=== PATIENT | female | born 1970 | race Two or more races ===

== ENCOUNTER 2020-01-06 14:57 | Outpatient (CLI) | payer OTHER | END 2020-01-06 15:05 | disposition home or self-care (01) | LOC: RAD 14:57 | DX: M54.2 Cervicalgia (principal) ==

== ENCOUNTER 2021-12-31 02:40 | Emergency (ER) | payer OTHER ==
[~2021-12-31] VITALS: Ht 152.4 cm; Wt 64.0 kg
[2021-12-31] MEDS ORDERED: LOSARTAN-HCTZ1 EACH PO (03:00)
[2021-12-31] MEDS ORDERED: NORFLEX100MG PO (06:31)
[2021-12-31] MEDS ORDERED: ACETAMINOPHEN650 M2 PO (06:31)
[2021-12-31] MEDS ORDERED: KETO10TA2 PO (06:31)
== END 2021-12-31 07:03 | disposition home or self-care (01) ==
LOC: ER 02:40
DX: M25.562 Pain in left knee (principal); M17.12 Unilateral primary osteoarthritis, left knee; M25.462 Effusion, left knee

== ENCOUNTER 2023-02-14 13:12 | Outpatient (CLI) | payer OTHER ==
[~2023-02-14 13:12] MED LIST: ACETAMINOPHEN650 M2 PO; KETO10TA2 PO; LOSARTAN-HCTZ1 EACH PO; NORFLEX100MG PO
== END 2023-02-14 13:15 | disposition home or self-care (01) ==
LOC: NUCLEAR 13:12
PROVIDERS: ATTEND Orthopaedic Surgery
DX: M81.0 Age-related osteoporosis without current pathological fracture (principal)

== ENCOUNTER 2023-02-14 14:42 | Outpatient (CLI) | payer OTHER | END 2023-02-14 14:49 | disposition home or self-care (01) | LOC: RAD 14:42 | PROVIDERS: ATTEND Orthopaedic Surgery | DX: M25.562 Pain in left knee (principal); M23.92 Unspecified internal derangement of left knee; M25.561 Pain in right knee | CPT/HCPCS: 73721 ==

== ENCOUNTER 2023-10-16 10:29 | Outpatient (CLI) | payer OTHER ==
[2023-10-16 11:40] LABS: HEMATOCRIT 39.8 % (36.0-45.00); HEMOGLOBIN 13.3 g/dL (12.0-15.00); MEAN CORPUSCULAR HEMOGLOBIN 28.5 pg (27.00-32.0); MEAN CORPUSCULAR HGB CONC 33.5 g/dl (32.0-36.0); PLATELET COUNT 275 K/uL (150-450); RED BLOOD COUNT 4.68 M/uL (4.00-6.00)
[2023-10-16 11:48] LABS: URINE APPEARANCE Clear; URINE BACTERIA 2247.8 uL (0.0-1933); URINE BILIRRUBIN Negative (NEGATIVE); URINE BLOOD Negative; URINE COLOR Yellow; URINE EPITHELIAL CELLS 72.9 uL (0.0-38.8); URINE GLUCOSE Negative (NEGATIVE); URINE LEUKOCYTE Negative; URINE NITRATE Negative; URINE PROTEIN Negative (NEGATIVE); URINE RBC 24.4 uL (0.0-20.8); URINE UROBILINOGEN 0.2 E.U./dl; URINE WBC 33.2 uL (0.0-23.2)
[2023-10-16 12:07] LABS: INR 0.96; PROTHROMBIN TIME 10.1 SECONDS (9.0-11.5)
[2023-10-16 12:08] LABS: BILIRUBIN TOTAL 0.51 mg/dL (0.3-1.2); CALCIUM 8.9 mg/dL (8.5-10.1); CREATININE SERUM 0.71 mg/dL (0.55-1.02); GFR 86.44; GLOBULINA 3.6 G/DL (2.4-3.5); PARTIAL THROMBOPLASTIN TIME 29.8 SECONDS (22.0-34.0); POTASSIUM 3.87 mEq/L (3.5-5.1); TOTAL PROTEIN 7.6 gm/dL (6.4-8.2)
[2023-10-16 12:19] LABS: COL EPI 82 SECONDS (82-175)
[2023-10-16] MEDS ORDERED: COZAAR50 MG PO (12:50)
== END 2023-10-16 11:53 | disposition home or self-care (01) ==
LOC: LAB 10:29
PROVIDERS: ATTEND Orthopaedic Surgery
DX: D64.9 Anemia, unspecified (principal); E88.89 Other specified metabolic disorders; D68.8 Other specified coagulation defects; N39.0 Urinary tract infection, site not specified; Z22.322 Carrier or suspected carrier of Methicillin resistant Staphylococcus aureus; E11.9 Type 2 diabetes mellitus without complications; I10 Essential (primary) hypertension; Z76.89 Persons encountering health services in other specified circumstances

== ENCOUNTER 2023-10-21 08:02 | Inpatient (IN) | payer OTHER ==
[~2023-10-21] VITALS: Ht 152.4 cm; Wt 70.3 kg
[~2023-10-21 08:02] MED LIST changes: +COZAAR50 MG PO
[2023-10-22] MEDS ORDERED: EPINEPHRINE HCL/PF 1 MG/ML AMPUL ONE (10:07)
[2023-10-22] MEDS ORDERED: POLYMYXIN B SULFATE 500,000 U VIAL ONE (10:07)
[2023-10-22] MEDS ORDERED: CEFAZOLIN SODIUM 1,000 MG VIAL ONE ×2 (10:07→16:57)
[2023-10-22] MEDS ORDERED: VANCOMYCIN HCL 1,000 MG VIAL ONE (10:07)
[2023-10-22] MEDS ORDERED: TRANEXAMIC ACID 100MG/1ML (1000MG) AMPUL IV ONE (10:07)
[2023-10-22] MEDS ORDERED: KETOROLAC TROMETHAMINE 60 MG VIAL IM ONE (10:13)
[2023-10-22] MEDS ORDERED: BUPIVACAINE HCL/PF 0.5% 30ML ML ONE ×2 (10:13→14:30)
[2023-10-22] MEDS ORDERED: LIDOCAINE HCL/EPINEPHRINE 10MG/ML 1% 50ML IJ ONE (10:14)
[2023-10-22] MEDS ORDERED: MORPHINE SULFATE 4 MG/ML CARTRIDGE IV SCH (12:00)
[2023-10-22] MEDS ORDERED: EPINEPHRINE HCL/PF 1 MG/ML AMPUL IR SCH (12:00)
[2023-10-22] MEDS ORDERED: BUPIVACAINE HCL/PF 0.5% 30ML ML IJ SCH (12:00)
[2023-10-22] MEDS ORDERED: CEFAZOLIN SODIUM 1,000 MG VIAL IV SCH ×2 (12:00→17:00)
[2023-10-22] MEDS ORDERED: ISOPROPYL ALCOHOL 30 ML OUNCE TOP SCH (12:00)
[2023-10-22] MEDS ORDERED: VANCOMYCIN HCL 1,000 MG VIAL IR SCH (12:00)
[2023-10-22] MEDS ORDERED: KETOROLAC TROMETHAMINE 60 MG VIAL IM SCH (12:00)
[2023-10-22] MEDS ORDERED: TRANEXAMIC ACID 100MG/1ML (1000MG) AMPUL IV SCH ×2 (12:00)
[2023-10-22] MEDS ORDERED: POLYMYXIN B SULFATE 500,000 U VIAL IR SCH (12:00)
[2023-10-22] MEDS ORDERED: LIDOCAINE HCL/EPINEPHRINE 30 ML ML IJ SCH (12:00)
[2023-10-22] MEDS ORDERED: ACETAMINOPHEN 500 MG GEL..CAP PO PRN (15:30)
[2023-10-22] MEDS ORDERED: ENALAPRILAT DIHYDRATE 1.25 MG/ML VIAL IV PRN (15:30)
[2023-10-22] MEDS ORDERED: PROMETHAZINE HCL 50 MG/ML AMPUL IM PRN (16:00)
[2023-10-22] MEDS ORDERED: SODIUM CHLORIDE 0.45 % 1,000 ML IV SCH (16:00)
[2023-10-22] MEDS ORDERED: TRAMADOL HCL 50 MG TABLET PO PRN (16:00)
[2023-10-22] MEDS ORDERED: ONDANSETRON HCL 2 MG/ML VIAL IV PRN (16:00)
[2023-10-22] MEDS ORDERED: ONDANSETRON 4 MG TAB.RAPDIS PO PRN (16:00)
[2023-10-22] MEDS ORDERED: MEPERIDINE HCL/PF 50 MG/ML VIAL IM PRN (16:00)
[2023-10-22] MEDS ORDERED: CELECOXIB 200 MG CAPSULE PO SCH (17:00)
[2023-10-22] MEDS ORDERED: ACETAMINOPHEN 325 MG TABLET PO SCH (17:00)
[2023-10-22] MEDS ORDERED: KETOROLAC TROMETHAMINE 10 MG TABLET PO SCH (21:00)
[2023-10-22] MEDS ORDERED: FAMOTIDINE/PF 20 MG in 0.9 % SODIUM CHLORIDE 8 ML IV PUSH SCH (21:00)
[2023-10-23 06:31] LABS: HEMATOCRIT 25.6 % (36.0-45.00); MEAN CELL VOLUME 84.7 fL (80.00-100.00); MEAN CORPUSCULAR HEMOGLOBIN 29.1 pg (27.00-32.0); MEAN CORPUSCULAR HGB CONC 34.4 g/dl (32.0-36.0); PLATELET COUNT 189 K/uL (150-450); RED BLOOD COUNT 3.02 M/uL (4.00-6.00); RED CELL DISTRIBUTION WIDTH 13.9 % (11.5-14.5)
[2023-10-23 06:52] LABS: HEMOGLOBIN 8.8 g/dL (12.0-15.00)
[2023-10-23] MEDS ORDERED: RIVAROXABAN 10 MG TAB PO SCH (09:00)
[2023-10-23] MEDS ORDERED: LOSARTAN/HYDROCHLOROTHIAZIDE 1 UDTAB TABLET PO SCH (09:00)
[2023-10-23] MEDS ORDERED: PANTOPRAZOLE SODIUM 40 MG TABLET.DR PO SCH (09:00)
[2023-10-23] MEDS ORDERED: FAMOTIDINE/PF 20 MG/2 ML VIAL ONE (14:58)
[2023-10-23] MEDS ORDERED: SOD FERRIC GLUC COMPLX/SUCROSE 62.5 MG/5 ML AMPUL IV STA (20:04)
[2023-10-24 05:12] LABS: HEMATOCRIT 24.2 % (36.0-45.00); MEAN CELL VOLUME 85.9 fL (80.00-100.00); MEAN CORPUSCULAR HGB CONC 34.9 g/dl (32.0-36.0); PLATELET COUNT 173 K/uL (150-450); RED BLOOD COUNT 2.82 M/uL (4.00-6.00); RED CELL DISTRIBUTION WIDTH 13.9 % (11.5-14.5)
[2023-10-24 05:22] LABS: HEMOGLOBIN 8.4 g/dL (12.0-15.00); MEAN CORPUSCULAR HEMOGLOBIN 29.7 pg (27.00-32.0)
[2023-10-24] MEDS ORDERED: SENNA/DOCUSATE SODIUM 1 TAB TABLET PO SCH (09:00)
[2023-10-24] MEDS ORDERED: FAMOTIDINE/PF 20 MG/2 ML VIAL ONE (16:15)
[2023-10-24] MEDS ORDERED: SOD FERRIC GLUC COMPLX/SUCROSE 62.5 MG in 0.9 % SODIUM CHLORIDE 50 ML IV SCH (16:55)
[2023-10-24] MEDS ORDERED: Cyanocobalamin/Mecobalamin 1 TAB.SL SL SCH (16:56)
[2023-10-25 05:50] LABS: HEMATOCRIT 26.8 % (36.0-45.00); HEMOGLOBIN 9.3 g/dL (12.0-15.00); MEAN CELL VOLUME 85.4 fL (80.00-100.00); MEAN CORPUSCULAR HEMOGLOBIN 29.5 pg (27.00-32.0); MEAN CORPUSCULAR HGB CONC 34.6 g/dl (32.0-36.0); PLATELET COUNT 172 K/uL (150-450); RED BLOOD COUNT 3.14 M/uL (4.00-6.00); RED CELL DISTRIBUTION WIDTH 14.2 % (11.5-14.5)
== END 2023-10-25 16:47 | DRG 470 ==
LOC: SURH 10-22 07:00 → O/R 10-22 08:05 → SURH 10-22 08:05
PROVIDERS: ADMIT Orthopaedic Surgery; ATTEND Orthopaedic Surgery
PROC: 0QSH04Z Reposition Left Tibia with Internal Fixation Device, Open Approach (ICD-10-PCS; 2023-10-22)
PROC: 0SRD0J9 Replacement of Left Knee Joint with Synthetic Substitute, Cemented, Open Approach (ICD-10-PCS; principal; 2023-10-22 07:00)
PROC: 30233N1 Transfusion of Nonautologous Red Blood Cells into Peripheral Vein, Percutaneous Approach (ICD-10-PCS; 2023-10-24)
DX: M17.12 Unilateral primary osteoarthritis, left knee (principal); S82.142A Displaced bicondylar fracture of left tibia, initial encounter for closed fracture; D62 Acute posthemorrhagic anemia; I10 Essential (primary) hypertension; Z20.822 Contact with and (suspected) exposure to COVID-19

== ENCOUNTER 2023-11-27 10:10 | Outpatient (CLI) | payer OTHER | END 2023-11-27 10:18 | disposition home or self-care (01) | LOC: RAD 10:10 | PROVIDERS: ATTEND Orthopaedic Surgery | DX: Z96.652 Presence of left artificial knee joint (principal) ==

== ENCOUNTER 2024-03-03 13:29 | Outpatient (CLI) | payer OTHER | END 2024-03-03 13:36 | disposition home or self-care (01) | LOC: RAD 13:29 | PROVIDERS: ATTEND Orthopaedic Surgery | DX: M25.562 Pain in left knee (principal); Z96.652 Presence of left artificial knee joint; M79.645 Pain in left finger(s) ==

== ENCOUNTER 2024-04-17 14:41 | Outpatient (CLI) | payer OTHER | END 2024-04-17 14:55 | disposition home or self-care (01) | LOC: TOM 14:41 | PROVIDERS: ATTEND Orthopaedic Surgery | DX: M25.562 Pain in left knee (principal); Z96.652 Presence of left artificial knee joint ==

== ENCOUNTER 2024-06-04 13:06 | Outpatient (CLI) | payer OTHER ==
[~2024-06-04 13:06] MED LIST changes: +MEDROLPACK PO; +NEURONTIN300 MG PO
== END 2024-06-04 13:07 | disposition home or self-care (01) ==
LOC: NUCLEAR 13:06
DX: M79.605 Pain in left leg (principal); R09.89 Other specified symptoms and signs involving the circulatory and respiratory systems; Z96.652 Presence of left artificial knee joint